=== PATIENT | male | born 1975 | race Two or more races ===

== ENCOUNTER 2022-07-19 12:02 | Emergency (ER) | payer OTHER ==
[~2022-07-19] VITALS: Ht 177.8 cm; Wt 82.9 kg
[2022-07-19] MEDS ORDERED: TETANUS-DIPTH-ACEL PERTUSSIS 0.5ML SYR Tdap IM ONE (14:30)
[2022-07-19] MEDS ORDERED: CEPHALEXIN 250 MG CAP PO ONE (14:30)
[2022-07-19] MEDS ORDERED: IBUPROFEN 800 MG TAB PO ONE (14:30)
[2022-07-19] MEDS ORDERED: IBUP-1455 PO (14:31)
[2022-07-19] MEDS ORDERED: CEPH-510 PO (14:31)
[2022-07-19 15:23] VITALS: BP 132/80
== END 2022-07-19 15:30 | disposition home or self-care (01) ==
LOC: ER 12:02
DX: K65.1 Peritoneal abscess (principal)
CPT/HCPCS: 90471; 90715

== ENCOUNTER 2024-10-10 20:22 | Emergency (ER) | payer OTHER ==
[~2024-10-10] VITALS: Ht 177.8 cm; Wt 79.0 kg
[~2024-10-10 20:22] MED LIST: CEPH-510 PO; IBUP-1455 PO
[2024-10-10 20:23] VITALS: BP 133/95; PULSE 103; RESP 18; TEMP 98.5; O2SAT 97
[2024-10-10] MEDS ORDERED: ERY05OO OP (23:10)
--- NOTE | 2024-10-10 23:10 | ED.PDOC ---
Eye-HPI HPI Comments 49 year old male presents to ER with complaints of bilateral eye complaint x 6 days. Patient states he's been experiencing redness/itchiness and yellow crusty drainage to bilateral eyes x 6 days. Denies any pain and denies use of medications for current symptoms. Patient presents to ER ambulatory on arrival, with steady gait, in no distress. Denies use of contacts, skin changes, vision changes or any further symptoms/complaints Chief Complaint: Eye Problem Time Seen by MD: 20:33 Primary Care Provider: UNKNOWN Reviewed Notes: Nurses Notes, Medications, Allergies Allergies: Coded Allergies: NO KNOWN ALLERGIES (Unverified , 07/19/22) Home Meds Active Scripts Erythromycin (Erythromycin) 5 Mg/Gm Oin, 1 MG OP 6XD for 7 Days, #1 OIN 1 Refill Prov:DUONG ORTIZ 10/10/24 Ibuprofen Micronized (Ibuprofen) 800 Mg Tab, 800 MG PO Q8HP PRN, #20 TAB Prov:JULIA ROWLAND PAC 07/19/22 Cephalexin ( Keflex 500) 500 Mg Cap, 1 CAP PO QID for 7 Days, #29 CAP Prov:JULIA ROWLAND PAC 07/19/22 Information Source: Patient Mode of Arrival: Ambulatory Past Medical History PAST MEDICAL HISTORY: Denies Surgical History: Denies all surgeries Family History Family History: Unknown Social History Smoker: Non-Smoker Alcohol: Denies ETOH Use Drugs: Denies Drug Use Lives In: Home Constitutional: denies: chills, diaphoresis, fatigue, fever, malaise, sweats, weakness, others EENTM: reports: others (As stated in HPI) Respiratory: denies: cough, hemoptysis, orthopnea, SOB at rest, shortness of breath, SOB with excertion, stridor, wheezing, others Cardiovascular: denies: chest pain, dizzy spells, diaphoresis, Dyspnea on exertion, edema, irregular heart beat, left arm pain, lightheadedness, palpitations, PND, syncope, others Gastrointestinal: denies: abdomen distended, abdominal pain, blood streaked bowels, constipated, diarrhea, dysphagia, difficulty swallowing, hematemesis, melena, nausea, poor appetite, poor fluid intake, rectal bleeding, rectal pain, vomiting, others Genitourinary: denies: burning, dysuria, flank pain, frequency, hematuria, incontinence, penile discharge, penile sore, pain, testicle pain, testicle swelling, urgency, others Neurological: denies: dizziness, fainting, headache, left sided numbness, left sided weakness, numbness, paresthesia, pre-existing deficit, right sided num bness, right sided weakness, seizure, speech problems, tingling, tremors, weakness, others Musculoskeletal: denies: back pain, gout, joint pain, joint swelling, muscle pain, muscle stiffness, neck pain, others Integumetry: denies: bruises, change in color, change in hair/nails, dryness, laceration, lesions, lumps, rash, wounds, others Allergic/Immunocompromised: denies: Difficulty Healing, Frequent Infections, Hives, Itching, others Hematologic/Lymphatic: denies: anemia, blood clots, easy bleeding, easy bruising, swollen glands, others Endocrine: denies: excessive hunger, excessive sweating, excessive thirst, excessive urination, flushing, intolerance to cold, intolerance to heat, unexplained weight gain, unexplained weight loss, others Psychiatric: denies: anxiety, bipolar disorder, depression, hopeless, panic disorder, schizophrenia, sleepless, suicidal, others Physical Exam General Appearance: No Apparent Distress HEENT: PERRL/EOMI, Pharynx Normal, TMs Normal, Other (Mild subconjunctival injection and minimal yellow crusty drainage noted to bilateral eyes, no foreign body noted. No skin changes to bilateral upper/lower eyelids appreciated) Neck: Full Range of Motion, Non-Tender, Normal Respiratory: Chest Non-Tender, Lungs Clear, No Accessory Muscle Use, No Respiratory Distress, Normal Breath Sounds Cardiovascular: No Murmur, No Gallop, Regular Rate/Rhythm Breast Exam: Deferred Gastrointestinal: NOT DONE Genitalia: Deferred Pelvic: Deferred Rectal: Deferred Extremities: Normal capillary refill, Normal range of motion Neurologic: Alert, No Motor Deficits, Normal Affect, Normal Mood, No Sensory Deficits Cerebellar Function: Normal Reflexes: Normal Skin: Dry, Normal Color, Warm Peripheral Pulses: 2+ carotid (R), 2+ carotid (L), 2+ Radial (R), 2+ Radial (L), 2+ Brachial (R), 2+ Brachial (L) Lymphatic: No Adenopathy Was a procedure done? Was a procedure done?: No Sedation Sedation?: No EENT DIFF Eye: Corneal Abrasion, Foreign Body-Corneal, Orbital Cellulits, Periorbital Cellulits X-Ray, Labs, Meds, VS Vital Signs Date Time Temp Pulse Resp B/P (MAP) Pulse Ox O2 Delivery O2 Flow Rate FiO2 10/10/24 22:19 Room Air 10/10/24 20:23 98.5 103 18 133/95 97 98.5 Importance of good hand hygiene discussed and advised Erythromycin ointment ordered Advised to follow up with Ophthalmology in 3-4 days if symptoms do not improve Advised to follow up with PCP in 1-2 days Patient verbalized understanding and agreeable with current plan of care Advised to return to ER immediately if symptoms worsen Time of 1ST Reevaluation: 22:40 Reevaluation 1ST: N/A Patient Education/Counseling: Diagnosis, Treatment, Prognosis, Need For Follow Up Family Education/Counseling: No Family Present SEPSIS Sepsis Screen Date sepsis recognized/suspect: Oct 10, 2024 Time Sepsis recognized/suspect: 2023 Recent Procedure: No On Antibiotic Therapy: No Respiratory Rate >20: No Heart Rate >90: Yes Temp<36 C (96.8 F) or >38.3 C: No SBP <90 or MAP <65 mmHG: No New Acute Mental Status Change: No Is the patient on CPAP, BIPAP,: No Physician Orders Erythromy Opth Oint 5mg/Gm 1gm (10/10/24 23:15) Vital Signs Date Time Temp Pulse Resp B/P (MAP) Pulse Ox O2 Delivery O2 Flow Rate FiO2 10/10/24 22:19 Room Air 10/10/24 20:23 98.5 103 18 133/95 97 98.5 Departure 1 Departure Time of Disposition: 23:08 Impression: Primary Impression: Bacterial conjunctivitis of both eyes Disposition: 01 HOME / SELF CARE / HOMELESS Condition: Stable e-Prescriptions Erythromycin (Erythromycin) 5 Mg/Gm Oin 1 MG OP 6XD for 7 Days, #1 OIN 1 Refill Prov: DUONG ORTIZ 10/10/24 Discharged With: Self Critical Care Note Critical Care Time?: No Stability Stability form required: No Heart Score Heart Score: Heart Score Response (Comments) Value History N/A 0 EKG N/A 0 Age N/A 0 Risk Factors N/A 0 Troponin N/A 0 Total 0 DOUNG ORTIZ Oct 10, 2024 23:10
[2024-10-10] MEDS: ERYTHROMY OPTH OINT 5mg/gm 1gm or 3.5gm tube OP ONE (23:17)
== END 2024-10-10 23:23 | disposition home or self-care (01) ==
LOC: ER 20:22
DX: H10.89 Other conjunctivitis (principal); Z79.899 Other long term (current) drug therapy

== ENCOUNTER 2024-11-02 23:27 | Emergency (ER) | payer OTHER ==
[~2024-11-02] VITALS: Ht 177.8 cm; Wt 80.0 kg
[~2024-11-02 23:27] MED LIST changes: +ERY05OO OP
[2024-11-02 23:39] VITALS: BP 131/89; PULSE 101; RESP 18; TEMP 98; O2SAT 96
--- NOTE | 2024-11-03 00:12 | ED.PDOC ---
Eye-HPI HPI Comments PT WANT TO DONATE PLASMA BUT WAS SENT FOR CLEARANCE BECAUSE HE HAD PINK EYE RECENTLY TREATED. DENIES FEVER, CHILLS, NAUSEA, VOMITING, EYE REDNESS, EYE PAIN, EYE ITCHY ESR EYE DRAINAGE STATES MEDICATION IMPROVED IT IN SYMPTOMS HAVE RESOLVED Chief Complaint: Eye Problem Time Seen by MD: 23:34 Primary Care Provider: UNKNOWN Reviewed Notes: Nurses Notes, Medications, Allergies Allergies: Coded Allergies: NO KNOWN ALLERGIES (Unverified , 07/19/22) Home Meds Active Scripts Erythromycin (Erythromycin) 5 Mg/Gm Oin, 1 MG OP 6XD for 7 Days, #1 OIN 1 Refill Prov:DUONG ORTIZ PA 10/10/24 Ibuprofen Micronized (Ibuprofen) 800 Mg Tab, 800 MG PO Q8HP PRN, #20 TAB Prov:JULIA ROWLAND PAC 07/19/22 Cephalexin ( Keflex 500) 500 Mg Cap, 1 CAP PO QID for 7 Days, #29 CAP Prov:JULIA ROWLAND PAC 07/19/22 Information Source: Patient Mode of Arrival: Ambulatory Past Medical History PAST MEDICAL HISTORY: Denies Surgical History: Denies all surgeries Family History Family History: Unknown Social History Smoker: Non-Smoker Alcohol: Denies ETOH Use Drugs: Denies Drug Use Lives In: Home All Other Systems: Reviewed and Negative (SEE HPI) Physical Exam General Appearance: No Apparent Distress, Normal HEENT: Normal ENT Inspection, Pharynx Normal, TMs Normal Neck: Full Range of Motion, Non-Tender Respiratory: Lungs Clear, No Respiratory Distress, Normal Breath Sounds Cardiovascular: No Murmur, Normal Peripheral Pulses, Regular Rate/Rhythm Breast Exam: Deferred Gastrointestinal: Non Tender, Soft Genitalia: Deferred Pelvic: Deferred Rectal: Deferred Extremities: Normal capillary refill, Normal range of motion, No pedal edema Musculoskeletal : Apperance: Normal Neurologic: Alert, No Motor Deficits, Normal Affect, Normal Mood, No Sensory Deficits Cerebellar Function: Normal Reflexes: NOT DONE Skin: Dry, Normal Color, Warm Lymphatic: No Adenopathy Was a procedure done? Was a procedure done?: No EENT DIFF Eye: Chalazion, Conjunctivitis, Allergic, Bacterial, Chlamydial, Corneal Ulceration, Foreign Body-Conjunctiva, Foreign Body-Corneal, Foreign Body- Intraocular, Foreign Body-Lid X-Ray, Labs, Meds, VS Vital Signs Date Time Temp Pulse Resp B/P (MAP) Pulse Ox O2 Delivery O2 Flow Rate FiO2 11/02/24 23:39 98.0 101 18 131/89 96 98.0 X-Ray, Labs, Meds, VS Comment PHYSICAL EXAM GROSSLY BENIGN NO NOTED CONJUNCTIVA DRAINAGE OR REDNESS. PATIENT CLEARED FOR PLASMA DONATION BASED ON RESOLUTION OF CONJUNCTIVITIS Time of 1ST Reevaluation: 23:34 Reevaluation 1ST: Improved Time of 2ND Reevaluation: 00:11 Reevaluation 2ND: Improved Patient Education/Counseling: Diagnosis, Treatment, Need For Follow Up Family Education/Counseling: No Family Present SEPSIS Sepsis Screen Date sepsis recognized/suspect: Nov 02, 2024 Time Sepsis recognized/suspect: 2342 Recent Procedure: No On Antibiotic Therapy: No Respiratory Rate >20: No Heart Rate >90: No Temp<36 C (96.8 F) or >38.3 C: No SBP <90 or MAP <65 mmHG: No New Acute Mental Status Change: No Is the patient on CPAP, BIPAP,: No Vital Signs Date Time Temp Pulse Resp B/P (MAP) Pulse Ox O2 Delivery O2 Flow Rate FiO2 11/02/24 23:39 98.0 101 18 131/89 96 98.0 Departure 1 Departure Time of Disposition: 00:10 Impression: Primary Impression: Adult wellness visit Disposition: HOME / SELF CARE / HOMELESS Condition: Stable Discharged With: Self Critical Care Note Critical Care Time?: No Stability Stability form required: ARIANE Kohli Nov 03, 2024 00:12
== END 2024-11-03 02:13 | disposition home or self-care (01) ==
LOC: ER 23:27
DX: H57.9 Unspecified disorder of eye and adnexa (principal); Z00.00 Encounter for general adult medical examination without abnormal findings